=== PATIENT | female | born 1995 | race Caucasian/White ===

== ENCOUNTER 2025-08-27 11:04 | Day surgery (SDC) | payer OTHER ==
[2025-08-27] MEDS ORDERED: BUPIVACAINE 0.5% VIAL IJ ONE (11:05)
[2025-08-27 12:34] LABS: HCG URINE TEST NEGATIVE (NEGATIVE)
[2025-08-27] MEDS ORDERED: propofoL IV ONE (14:21)
--- NOTE | 2025-08-27 14:59 | XRAY ---
Indication: Bilateral L4-S1 MBB. Intraoperative fluoroscopy provided for 22 seconds. Single digital spot image submitted for interpretation demonstrates posterior needle tips projecting over expected left and right L4-S1 nerve roots. Correlate with intraoperative findings/report.
[2025-08-27] MEDS ORDERED: Lactated Ringers 1,000 ML IV ONE (15:39)
--- NOTE | 2025-08-27 17:09 | XRAY ---
22 seconds of fluoroscopy was used in surgery for a bilateral L4-S1 MBB.
== END 2025-08-27 14:50 | disposition home or self-care (01) ==
LOC: SDC-PAIN 11:04
PROVIDERS: ATTEND Psychiatry & Neurology Pain Medicine
DX: M47.817 Spondylosis without myelopathy or radiculopathy, lumbosacral region (principal)